=== PATIENT | female | born 2000 ===

== ENCOUNTER 2022-08-22 11:40 | Emergency (ER) | payer OTHER ==
[~2022-08-22] VITALS: Ht 165.1 cm; Wt 65.8 kg
[2022-08-22] MEDS ORDERED: HUMALOG100 UNIT/1 (13:52)
[2022-08-22] MEDS ORDERED: NOVOLOG100 UNIT/1 SQ (13:52)
== END 2022-08-22 16:00 | disposition home or self-care (01) ==
LOC: ER 11:40
DX: M25.572 Pain in left ankle and joints of left foot (principal); X50.1XXA Overexertion from prolonged static or awkward postures, initial encounter; Y93.01 Activity, walking, marching and hiking; Y92.89 Other specified places as the place of occurrence of the external cause